=== PATIENT | male | born 1985 | race Caucasian/White ===

== ENCOUNTER 2018-04-17 09:50 | Inpatient (IN) | payer SELFPAY ==
[2018-04-17 11:02] VITALS: BMI 27.4
--- NOTE | 2018-04-17 12:35 | HP ---
COWS - Scale Resting Pulse: 0= DC 80 or Below Sweatin= Chills/Flushing Restless Observation: 3= Extraneous Movement Pupil Size: 1= Pupils >than Normal Bone or Joint Aches: 2= Severe Diffuse Aches Runny Nose/ Eye Tearin= Runny Nose/Eyes GI Upset > 30mins: 2= Nausea/Diarrhea Tremor Observation: 2= Slight Tremor Visible Yawning Observation: 1= 1-2x During Session Anxiety or Irritability: 2=Irritable/Anxious Goose Flesh Skin: 0=Smooth Skin COWS Score: 16 CIWA Score - Admission Criteria OASAS Guidelines: Admission for Medically Managed Detox: Requires at least one of the followin. CIWA greater than 12 2. Seizures within the past 24 hours 3. Delirium tremens within the past 24 hours 4. Hallucinations within the past 24 hours 5. Acute intervention needed for co occurring medical disorder 6. Acute intervention needed for co occurring psychiatric disorder 7. Severe withdrawal that cannot be handled at a lower level of care (continued vomiting, continued diarrhea, abnormal vital signs) requiring intravenous medication and/or fluids 8. Admission ROS S - HPI Chief Complaint: i need help to stop using heroin and marijuana Allergies/Adverse Reactions: Allergies Allergy/AdvReac Type Severity Reaction Status Date / Time aspirin Allergy Verified 04/17/18 12:10 Penicillins Allergy Verified 04/17/18 12:11 History of Present Illness: this 33 years old male with heroin and marijuana dependence,seeking detox, withdrawal symptom,seen in [place] last night, hypertension on med nicotine dependence need help to come in for detox schizophrenia,bipolar disorder,anxiety and depression non compliance Exam Limitations: No Limitations - Ebola screening Have you traveled outside of the country in the last 21 days: No Have you had contact with anyone from an Ebola affected area: No Have you been sick,other than usual withdrawal symptoms: No Do you have a fever: No - Review of Systems Constitutional: Chills, Loss of Appetite, Malaise, Night Sweats, Changes in sleep, Weakness EENT: reports: Tearing, Nose Congestion Respiratory: reports: No Symptoms reported Cardiac: reports: No Symptoms Reported GI: reports: Nausea, Poor Appetite, Abdominal cramping : reports: No Symptoms Reported Musculoskeletal: reports: Back Pain, Joint Pain, Muscle Pain Integumentary: reports: Dryness Neuro: reports: Headache, Tremors Endocrine: reports: No Symptoms Reported Hematology: reports: No Symptoms Reported Psychiatric: reports: No Sypmtoms Reported, Judgement Intact, Mood/Affect Appropiate, Orientated x3, other Other Systems: Reviewed and Negative (schizophrenia,bipolar disorder,depression) Patient History - Patient Medical History Hx Anemia: No Hx Asthma: No Hx Chronic Obstructive Pulmonary Disease (COPD): No Hx Cancer: No Hx Cardiac Disorders: No Hx Congestive Heart Failure: No Hx Hypertension: Yes (on med) Hx Hypercholesterolemia: Yes (no med) Hx Pacemaker: No HX Cerebrovascular Accident: No Hx Seizures: No Hx Dementia: No Hx Diabetes: No Hx Gastrointestinal Disorders: No Hx Liver Disease: No Hx Genitourinary Disorders: No Hx Sexually Transmitted Disorders: No Hx Renal Disease (ESRD): No Hx Thyroid Disease: No Hx Human Immunodeficiency Virus (HIV): No (last 09/27 negative) Hx Hepatitis C: No Hx Depression: Yes Hx Suicide Attempt: Yes (ABDOPMINAL CUT 03/2017) Hx Bipolar Disorder: Yes Hx Schizophrenia: Yes Other Medical History: no suicidal,no homicidal - Patient Surgical History Past Surgical History: No - PPD History Previous Implant?: Yes Documented Results: Negative w/o proof Implanted On Prior [facility] Admission?: No PPD to be Administered?: Yes - Smoking Cessation Smoking history: Current every day smoker Have you smoked in the past 12 months: Yes Aproximately how many cigarettes per day: 20 Hx Chewing Tobacco Use: Yes Initiated information on smoking cessation: Yes 'Breaking Loose' booklet given: 04/17/18 - Substance & Tx. History Hx Alcohol Use: No Hx Substance Use: Yes Substance Use Type: Heroin, Marijuana Hx Substance Use Treatment: No - Substances Abused Heroin Route: SNIFF Frequency: Daily Amount used: 2 BUNDLES Age of first use: 30 Date of Last Use: 04/16/18 Marijuana/Hashish Route: Smoking Frequency: Daily Amount used: 2 BAGS Age of first use: 17 Date of Last Use: 04/16/18 Family Disease History - Family Disease History Family History: Denies Admission Physical Exam BHS - Vital Signs Vital Signs: Vital Signs - 24 hr 04/17/18 11:00 Temperature 98.3 F Pulse Rate 80 Respiratory 18 Rate Blood Pressure 125/78 - Physical General Appearance: Yes: Moderate Distress, Tremorous, Irritable, Sweating, Anxious HEENTM: Yes: Within Normal Limits, Normal ENT Inspection, ALPHONSO Respiratory: Yes: Within Normal Limits, Lungs Clear, Normal Breath Sounds Neck: Yes: Within Normal Limits, Supple, Trachea in good position Breast: Yes: Within Normal Limits Cardiology: Yes: Within Normal Limits, Regular Rhythm, Regular Rate, S1, S2 Abdominal: Yes: Within Normal Limits, Normal Bowel Sounds, Non Tender, Flat, Soft Genitourinary: Yes: Within Normal Limits Back: Yes: Within Normal Limits, Normal Inspection, Muscle Spasm Musculoskeletal: Yes: full range of Motion, Back pain, Muscle Pain Extremities: Yes: Within Normal Limits, Tremors Neurological: Yes: surveillance systems analyst II-XII NML intact, Fully Oriented, Alert, Motor Strength 5/5 Integumentary: Yes: Dry Lymphatic: Yes: Within Normal Limits - Diagnostic (1) Opioid dependence with withdrawal Current Visit: Yes Status: Acute (2) Cannabis dependence Current Visit: Yes Status: Acute (3) Nicotine dependence Current Visit: Yes Status: Acute (4) Essential hypertension Current Visit: Yes Status: Acute (5) Schizophrenia Current Visit: Yes Status: Acute Cleared for Admission [facility] - Detox or Rehab [facility] Level of Care: Medically Managed Detox Regimen/Protocol: Methadone [facility] Breath Alcohol Content Breath Alcohol Content: 0 Urine Drug Screen - Results Drug Screen Negative: No Urine Drug Screen Results: THC-Marijuana, OPI-Opiates
[2018-04-17] MEDS ORDERED: P-EPHED 60MG/TRIPROLIDI 2.5MG TABLET PO PRN (12:48)
[2018-04-17] MEDS ORDERED: LOPERAMIDE HCL 2 MG CAPSULE PO PRN (12:48)
[2018-04-17] MEDS ORDERED: ACETAMINOPHEN 325 MG TABLET (FP) PO PRN (12:48)
[2018-04-17] MEDS ORDERED: MAG HYDROX/AL HYDROX/SIMETH 30 ML UNIT-DOSE CUP PO PRN (12:48)
[2018-04-17] MEDS ORDERED: MENTHOL/PHENOL 1 EACH UD MM PRN (12:48)
[2018-04-17] MEDS ORDERED: METHADONE HCL 10 MG TABLET (FOR DETOX USE ONLY) PO ONE ×2 (12:48→23:00)
[2018-04-17] MEDS ORDERED: IBUPROFEN 400 MG TABLET (FP) PO PRN (12:48)
[2018-04-17] MEDS ORDERED: guaiFENesin/D-METHORPHAN HB 10 ML UNIT-DOSE CUPS PO PRN (12:48)
[2018-04-17] MEDS ORDERED: MAGNESIUM HYDROX 2400MG/30ML ORAL SUSPENSION 30 ML CUP PO PRN (12:48)
[2018-04-17] MEDS ORDERED: MAGNESIUM CITRATE 300 ML BOTTLE PO PRN (12:48)
[2018-04-17] MEDS: CYCLOBENZAPRINE HCL 10 MG TABLET (FP) PO PRN ×2 (13:55→22:37)
[2018-04-17] MEDS: diazePAM 5 MG TABLET PO PRN ×2 (13:55→22:37)
[2018-04-17] MEDS: NICOTINE 21 MG/24 HOURS TOPICAL PATCH TD SCH (13:55)
[2018-04-17] MEDS ORDERED: MELATONIN 5 MG TABLETS PO PRN (22:00)
[2018-04-17] MEDS: cloNIDine HCL 0.1 MG TABLET PO SCH (22:37)
[2018-04-17] MEDS: THIAMINE HCL 100 MG TABLET (FP) PO SCH (22:38)
[2018-04-18] MEDS: diazePAM 5 MG TABLET PO PRN ×3 (05:25→14:54)
[2018-04-18] MEDS: CYCLOBENZAPRINE HCL 10 MG TABLET (FP) PO PRN ×2 (07:55→22:46)
[2018-04-18] MEDS: hydrOXYzine PAMOATE 50 MG CAPSULE (FP) PO PRN ×2 (07:55→18:36)
[2018-04-18] MEDS ORDERED: METHADONE HCL 10 MG TABLET (FOR DETOX USE ONLY) PO ONE (10:00)
[2018-04-18] MEDS: PRENATAL VITAMINS W/ FOLIC ACID TABLET (FP) PO SCH (10:13)
[2018-04-18] MEDS: cloNIDine HCL 0.1 MG TABLET PO SCH ×2 (10:13→22:46)
[2018-04-18] MEDS: NICOTINE 21 MG/24 HOURS TOPICAL PATCH TD SCH (10:13)
[2018-04-18 10:19] LABS: HEMATOCRIT 44.1 % (35.4-49); HEMOGLOBIN 15.4 GM/dL (11.7-16.9); MCH 30.9 pg (25.7-33.7); MCHC 34.9 g/dl (32.0-35.9); MEAN CELL VOLUME 88.6 fl (80-96); MEAN PLT VOLUME 9.7 fl (7.5-11.1); PLATELET COUNT 199 K/MM3 (134-434); RBC 4.98 M/mm3 (4.00-5.60); RDW 13.4 % (11.9-15.9); WHITE BLOOD COUNT 5.6 K/mm3 (4.0-10.0)
[2018-04-18 10:23] LABS: ALBUMIN 4.1 g/dl (3.4-5.0); ALK PHOS 95 U/L (45-117); ANION GAP 5 MMOL/L (8-16); BILIRUBIN,TOTAL 0.3 mg/dL (0.2-1); BLOOD UREA NITROGEN 7 mg/dL (7-18); CALCIUM 9.3 mg/dL (8.5-10.1); CHLORIDE 104 mmol/L (98-107); CO2 29 mmol/L (21-32); CREATININE 0.8 mg/dL (0.55-1.3); GLUCOSE,RANDOM 97 mg/dL (74-106); POTASSIUM 4.7 mmol/L (3.5-5.1); SGOT/AST 24 U/L (15-37); SGPT/ALT 41 U/L (13-61); SODIUM 139 mmol/L (136-145); TOT PROT 7.8 g/dl (6.4-8.2)
[2018-04-18] MEDS ORDERED: FLU VACCINE QUAD 60 MCG/0.5 ML (MDV 18-19) IM ONE (12:07)
[2018-04-18] MEDS ORDERED: PNEUMOC 13-VAL CONJ-DIP CRM/PF 0.5 ML DISP.SYRIN IM ONE (12:07)
[2018-04-18] MEDS ORDERED: PNEUMOCOCCAL 23 VACCINE 0.5 ML VIAL IM ONE (12:07)
--- NOTE | 2018-04-18 15:28 | PN ---
BHS COWS - Scale Resting Pulse: 0= [place] 80 or Below Sweatin= Chills/Flushing Restless Observation: 1= Difficult to Sit Still Pupil Size: 0= Normal to Room Light Bone or Joint Aches: 1= Mild Discomfort Runny Nose/ Eye Tearin= None GI Upset > 30mins: 0= None Tremor Observation of Outstretched Hands: 2= Slight Tremor Visible Yawning Observation: 1= 1-2x During Session Anxiety or Irritability: 2=Irritable/Anxious Goose Flesh Skin: 3=Piloerection COWS Score: 11 BHS Progress Note (SOAP) Subjective: Tremors, Anxious, Sweating. Objective: PATIENT A & O X 2 (UNCERTAIN ABOUT CURRENT DAY / DATE). PATIENT OBSERVED AMBULATING ON UNIT. IN NO ACUTE DISTRESS. 04/18/18 15:27 Vital Signs Temperature 97.5 F L 04/18/18 14:43 Pulse Rate 80 04/18/18 14:43 Respiratory Rate 18 04/18/18 14:43 Blood Pressure 119/70 04/18/18 14:43 O2 Sat by Pulse Oximetry (%) Laboratory Tests 04/18/18 04/18/18 04/18/18 07:00 07:00 07:00 WBC 5.6 RBC 4.98 Hgb 15.4 Hct 44.1 MCV 88.6 MCH 30.9 MCHC 34.9 RDW 13.4 Plt Count 199 MPV 9.7 Sodium 139 Potassium 4.7 Chloride 104 Carbon Dioxide 29 Anion Gap 5 L BUN 7 Creatinine 0.8 Creat Clearance w eGFR > 60 Random Glucose 97 Calcium 9.3 Total Bilirubin 0.3 AST 24 ALT 41 Alkaline Phosphatase 95 Total Protein 7.8 Albumin 4.1 RPR Titer HIV 1&2 Antibody Screen Negative HIV P24 Antigen Negative 04/18/18 07:00 WBC RBC Hgb Hct MCV MCH MCHC RDW Plt Count MPV Sodium Potassium Chloride Carbon Dioxide Anion Gap BUN Creatinine Creat Clearance w eGFR Random Glucose Calcium Total Bilirubin AST ALT Alkaline Phosphatase Total Protein Albumin RPR Titer Nonreactive HIV 1&2 Antibody Screen HIV P24 Antigen LABS NOTED. Assessment: 04/18/18 15:27 WITHDRAWAL SYMPTOMS. Plan: CONTINUE DETOX. INCREASE DAILY PO FLUID INTAKE.
[2018-04-18] MEDS: THIAMINE HCL 100 MG TABLET (FP) PO SCH (23:30)
[2018-04-19] MEDS: diazePAM 5 MG TABLET PO PRN ×5 (01:11→18:04)
[2018-04-19] MEDS: hydrOXYzine PAMOATE 50 MG CAPSULE (FP) PO PRN ×2 (06:45→17:10)
[2018-04-19] MEDS: CYCLOBENZAPRINE HCL 10 MG TABLET (FP) PO PRN ×2 (06:45→17:09)
[2018-04-19] MEDS ORDERED: METHADONE HCL 5 MG TABLET (FOR DETOX USE ONLY) PO ONE (10:00)
[2018-04-19] MEDS: PRENATAL VITAMINS W/ FOLIC ACID TABLET (FP) PO SCH (10:02)
[2018-04-19] MEDS: cloNIDine HCL 0.1 MG TABLET PO SCH (10:02)
[2018-04-19] MEDS: NICOTINE 21 MG/24 HOURS TOPICAL PATCH TD SCH (10:03)
[2018-04-19 17:26] VITALS: BP 128/68; PULSE 66; TEMP 98.2
--- NOTE | 2018-04-19 17:33 | PN ---
BHS COWS - Scale Resting Pulse: 1= [place] 81-100 Sweatin= Chills/Flushing Restless Observation: 1= Difficult to Sit Still Pupil Size: 0= Normal to Room Light Bone or Joint Aches: 0= None Runny Nose/ Eye Tearin= Nasal Congestion GI Upset > 30mins: 1= Stomach Cramp Tremor Observation of Outstretched Hands: 0= None Yawning Observation: 1= 1-2x During Session Anxiety or Irritability: 4=Extreme Anxiety Goose Flesh Skin: 0=Smooth Skin COWS Score: 10 BHS Progress Note (SOAP) Subjective: Interrupted Sleep, Sweating, Stomach Cramping. Objective: PATIENT A & O X 3, OBSERVED AMBULATING ON UNIT. IN NO ACUTE DISTRESS. 04/19/18 17:32 Vital Signs Temperature 98.2 F 04/19/18 17:25 Pulse Rate 66 04/19/18 17:25 Respiratory Rate 18 04/19/18 17:25 Blood Pressure 128/68 04/19/18 17:25 O2 Sat by Pulse Oximetry (%) Laboratory Tests 04/18/18 04/18/18 04/18/18 07:00 07:00 07:00 WBC 5.6 RBC 4.98 Hgb 15.4 Hct 44.1 MCV 88.6 MCH 30.9 MCHC 34.9 RDW 13.4 Plt Count 199 MPV 9.7 Sodium 139 Potassium 4.7 Chloride 104 Carbon Dioxide 29 Anion Gap 5 L BUN 7 Creatinine 0.8 Creat Clearance w eGFR > 60 Random Glucose 97 Calcium 9.3 Total Bilirubin 0.3 AST 24 ALT 41 Alkaline Phosphatase 95 Total Protein 7.8 Albumin 4.1 RPR Titer HIV 1&2 Antibody Screen Negative HIV P24 Antigen Negative 04/18/18 07:00 WBC RBC Hgb Hct MCV MCH MCHC RDW Plt Count MPV Sodium Potassium Chloride Carbon Dioxide Anion Gap BUN Creatinine Creat Clearance w eGFR Random Glucose Calcium Total Bilirubin AST ALT Alkaline Phosphatase Total Protein Albumin RPR Titer Nonreactive HIV 1&2 Antibody Screen HIV P24 Antigen LABS NOTED. Assessment: 04/19/18 17:32 WITHDRAWAL SYMPTOMS. Plan: CONTINUE DETOX. INCREASE DAILY PO FLUID INTAKE.
--- NOTE | 2018-04-19 19:42 | DS ---
[facility] Detox Discharge Summary Admission Date: 04/17/18 Discharge Date: 04/19/18 - History Present History: Cannabis Dependence, Opioid Dependence Pertinent Past History: 33 years old male admitted with heroin and marijuana dependence- leaving AMA today. Says methadone dose is not high enough- offered pt clonidine and vistaril /valium- pt refused stating that he wants to leave now. - Physical Exam Results Vital Signs: Vital Signs Temperature 98.2 F 04/19/18 17:25 Pulse Rate 66 04/19/18 17:25 Respiratory Rate 18 04/19/18 17:25 Blood Pressure 128/68 04/19/18 17:25 O2 Sat by Pulse Oximetry (%) - Treatment Hospital Course: Detox Protocol Followed - Medication Discharge Medications: Ambulatory Orders Clonazepam 1 mg PO DAILY 04/17/18 Divalproex Sodium [Depakote] 500 mg PO DAILY 04/17/18 Quetiapine Fumarate [Seroquel] 100 mg PO HS 04/17/18 - Diagnosis (1) Cannabis dependence Current Visit: Yes Status: Acute (2) Nicotine dependence Current Visit: Yes Status: Acute Qualifiers: Nicotine product type: cigarettes Substance use status: uncomplicated Qualified Code(s): F17.210 - Nicotine dependence, cigarettes, uncomplicated (3) Opioid dependence with withdrawal Current Visit: Yes Status: Acute (4) Bipolar disorder Current Visit: Yes Status: Chronic Qualifiers: Active/Remission status: remission status unspecified Qualified Code(s): F31.9 - Bipolar disorder, unspecified (5) Essential hypertension Current Visit: Yes Status: Chronic (6) Schizophrenia Current Visit: Yes Status: Chronic Qualifiers: Schizophrenia type: unspecified Qualified Code(s): F20.9 - Schizophrenia, unspecified - AMA Did Patient Leave Against Medical Advice: Yes
[2018-04-20] MEDS ORDERED: METHADONE HCL 5 MG TABLET (FOR DETOX USE ONLY) PO ONE (10:00)
[2018-04-21] MEDS ORDERED: METHADONE HCL 10 MG TABLET (FOR DETOX USE ONLY) PO ONE (10:00)
[2018-04-22] MEDS ORDERED: METHADONE HCL 5 MG TABLET (FOR DETOX USE ONLY) PO ONE (06:00)
== END 2018-04-19 20:17 | disposition left against medical advice (07) | DRG 770 ==
LOC: YASAS 09:50 → Y6N 12:16
PROC: HZ2ZZZZ Detoxification Services for Substance Abuse Treatment (ICD-10-PCS; principal; 2018-04-17)
DX: F11.23 Opioid dependence with withdrawal (principal); F12.20 Cannabis dependence, uncomplicated; F17.210 Nicotine dependence, cigarettes, uncomplicated; F31.9 Bipolar disorder, unspecified; F20.9 Schizophrenia, unspecified; I10 Essential (primary) hypertension; Z91.5 Personal history of self-harm; Z59.0 Homelessness
CPT/HCPCS: 36415; 80053; 85027; 86593; 87389; 90688; 90732; G0009; J0735

== ENCOUNTER 2019-10-31 09:23 | Inpatient (IN) | payer OTHER ==
--- NOTE | 2019-10-31 09:36 | BHS.RME ---
Substance Use & Tx History - Substance Use History Alcohol Substance amount: 1/gallon vodka Frequency of use: Daily Substance route: Oral Date of Last Use: 10/30/19 Benzodiazepines Substance amount: klonopin 1 mg - 4-5 tabs Frequency of use: Daily Substance route: Oral Date of Last Use: 10/29/19 Nicotine Substance amount: 1/2 pack Frequency of use: Daily Substance route: Smoking Date of Last Use: 10/30/19 Physical/Psych/Mental Status - Behavior General Behavior: Increased activity (restlessness, agitation) Eye Contact: Normal - Cooperativeness Cooperativeness: Cooperative - Thinking Thought Processes: Tight, Logical, Goal Directed - Physical Health Problems Is patient presently having any pain?: No Does patient presently have any injuries (include location): No Does patient currently have a fever: No Is patient : No CIWA Nausea/Vomitin Muscle Tremors: 7-Severe,w/o Arm Extended Anxiety: 3 Agitation: 3 Paroxysmal Sweats: 4-Forehead w/Sweat Beads Orientation: 1-Uncertain about Date Tacttile Disturbances: 0-None Auditory Disturbances: 0-None Visual Disturbances: 0-None Headache: 0-None Present CIWA-Ar Total Score: 20
[2019-10-31 10:35] VITALS: BMI 28.4
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
[2019-10-31] MEDS ORDERED: IBUPROFEN 400 MG TABLET (FP) PO PRN (11:10)
[2019-10-31] MEDS ORDERED: MAGNESIUM HYDROX 2400MG/30ML ORAL SUSPENSION 30 ML CUP PO PRN (11:10)
[2019-10-31] MEDS ORDERED: MENTHOL/PHENOL 1 EACH UD MM PRN (11:10)
[2019-10-31] MEDS ORDERED: BISMUTH SUBSALICYLATE 524 MG/30 ML UD PO PRN (11:10)
[2019-10-31] MEDS ORDERED: ONDANSETRON *ODT* 4 MG TABLET SL PRN (11:10)
[2019-10-31] MEDS ORDERED: NICOTINE POLACRILEX 2 MG GUM BUC PRN (11:10)
[2019-10-31] MEDS ORDERED: ACETAMINOPHEN 325 MG TABLET (FP) PO PRN ×2 (11:10)
[2019-10-31] MEDS ORDERED: METHADONE HCL 10 MG TABLET (FOR DETOX USE ONLY) PO ONE (11:10)
[2019-10-31] MEDS ORDERED: MAG HYDROX/AL HYDROX/SIMETH 30 ML UNIT-DOSE CUP PO PRN (11:10)
[2019-10-31] MEDS ORDERED: MAGNESIUM CITRATE 300 ML BOTTLE PO PRN (11:10)
[2019-10-31] MEDS: NICOTINE 14 MG/24 HOURS TOPICAL PATCH TD SCH (13:12)
[2019-10-31] MEDS: hydrOXYzine PAMOATE 25 MG CAPSULE (FP) PO SCH ×3 (13:12→22:09)
--- NOTE | 2019-10-31 13:14 | EKG ---
Test Reason : Blood Pressure : / mmHG Vent. Rate : 064 BPM Atrial Rate : 064 BPM P-R Int : 122 ms QRS Dur : 086 ms QT Int : 410 ms P-R-T Axes : 047 040 054 degrees QTc Int : 422 ms NORMAL SINUS RHYTHM NORMAL ECG WHEN COMPARED WITH ECG OF 17-APR-2018 13:27, NO SIGNIFICANT CHANGE WAS FOUND Confirmed by Guanako Castaneda ([id number]) on 10/31/2019 1:14:39 PM Referred By: Confirmed By:Guanako Castaneda
[2019-10-31 15:06] LABS: HEMATOCRIT 38.4 % (35.4-49); HEMOGLOBIN 12.9 GM/dL (11.7-16.9); MCH 29.9 pg (25.7-33.7); MCHC 33.6 g/dl (32.0-35.9); MEAN PLT VOLUME 9.7 fl (7.5-11.1); PLATELET COUNT 143 K/MM3 (134-434); RBC 4.32 M/mm3 (4.00-5.60); WHITE BLOOD COUNT 3.9 K/mm3 (4.0-10.0)
[2019-10-31 15:21] LABS: POTASSIUM 4.3 mmol/L (3.5-5.1)
[2019-10-31 15:32] LABS: ALBUMIN 3.8 g/dl (3.4-5.0); BILIRUBIN,TOTAL 0.2 mg/dL (0.2-1); BLOOD UREA NITROGEN 13.8 mg/dL (7-18); CALCIUM 9.3 mg/dL (8.5-10.1); CREATININE 0.8 mg/dL (0.55-1.3); TOT PROT 7.4 g/dl (6.4-8.2)
[2019-10-31] MEDS: chlordiazePOXIDE HCL 25 MG CAPSULE PO SCH ×2 (17:24→22:09)
[2019-10-31] MEDS: MELATONIN 5 MG TABLETS PO SCH (22:09)
[2019-10-31] MEDS: THIAMINE HCL 100 MG TABLET (FP) PO SCH (22:09)
[2019-11-01] MEDS: chlordiazePOXIDE HCL 25 MG CAPSULE PO PRN ×2 (01:08→12:12)
[2019-11-01] MEDS: hydrOXYzine PAMOATE 25 MG CAPSULE (FP) PO SCH ×5 (05:20→22:03)
[2019-11-01] MEDS: chlordiazePOXIDE HCL 25 MG CAPSULE PO SCH ×4 (05:20→22:03)
[2019-11-01] MEDS ORDERED: METHADONE HCL 10 MG TABLET (FOR DETOX USE ONLY) ONE (08:20)
[2019-11-01] MEDS ORDERED: METHADONE HCL 5 MG TABLET (FOR DETOX USE ONLY) ONE (08:21)
[2019-11-01] MEDS ORDERED: METHADONE (DETOX) 20 MG, METHADONE (DETOX) 5 MG PO ONE (10:00)
[2019-11-01] MEDS: NICOTINE 14 MG/24 HOURS TOPICAL PATCH TD SCH (10:04)
[2019-11-01] MEDS: PRENATAL VITAMINS W/ FOLIC ACID TABLET (FP) PO SCH (10:04)
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
[2019-11-01] MEDS: cloNIDine HCL 0.1 MG TABLET PO PRN (12:12)
--- NOTE | 2019-11-01 13:08 | PN ---
S CIWA - CIWA Score Nausea/Vomitin Muscle Tremors: 2 Anxiety: 2 Agitation: 2 Paroxysmal Sweats: No Perspiration Orientation: 0-Oriented Tacttile Disturbances: 1-Very Mild Itch/Numbness Auditory Disturbances: 0-None Visual Disturbances: 0-None Headache: 2-Mild CIWA-Ar Total Score: 11 BHS COWS - Scale Resting Pulse: 0= [place] 80 or Below Sweatin= No chills or Flushing Restless Observation: 1= Difficult to Sit Still Pupil Size: 0= Normal to Room Light Bone or Joint Aches: 1= Mild Discomfort Runny Nose/ Eye Tearin= Runny Nose/Eyes GI Upset > 30mins: 2= Nausea/Diarrhea Tremor Observation of Outstretched Hands: 2= Slight Tremor Visible Yawning Observation: 1= 1-2x During Session Anxiety or Irritability: 2=Irritable/Anxious Goose Flesh Skin: 0=Smooth Skin COWS Score: 11 [facility] Progress Note (SOAP) Subjective: alert,irritable,anxious,pain in the body and back,tremor, Objective: 11/01/19 13:06 Vital Signs Temperature 97.5 F L 11/01/19 12:18 Pulse Rate 70 11/01/19 12:18 Respiratory Rate 18 11/01/19 12:18 Blood Pressure 110/67 11/01/19 12:18 O2 Sat by Pulse Oximetry (%) 98 11/01/19 12:18 Laboratory Last Values WBC 3.9 K/mm3 (4.0-10.0) L 10/31/19 10:25 RBC 4.32 M/mm3 (4.00-5.60) 10/31/19 10:25 Hgb 12.9 GM/dL (11.7-16.9) 10/31/19 10:25 Hct 38.4 % (35.4-49) 10/31/19 10:25 MCV 89.0 fl (80-96) 10/31/19 10:25 MCH 29.9 pg (25.7-33.7) 10/31/19 10:25 MCHC 33.6 g/dl (32.0-35.9) 10/31/19 10:25 RDW 14.0 % (11.9-15.9) 10/31/19 10:25 Plt Count 143 K/MM3 (134-434) D 10/31/19 10:25 MPV 9.7 fl (7.5-11.1) 10/31/19 10:25 Sodium 137 mmol/L (136-145) 10/31/19 10:25 Potassium 4.3 mmol/L (3.5-5.1) 10/31/19 10:25 Chloride 100 mmol/L (98-107) 10/31/19 10:25 Carbon Dioxide 33 mmol/L (21-32) H 10/31/19 10:25 Anion Gap 4 MMOL/L (8-16) L 10/31/19 10:25 BUN 13.8 mg/dL (7-18) 10/31/19 10:25 Creatinine 0.8 mg/dL (0.55-1.3) 10/31/19 10:25 Est GFR (CKD-EPI)AfAm 134.14 10/31/19 10:25 Est GFR (CKD-EPI)NonAf 115.74 10/31/19 10:25 Random Glucose 94 mg/dL (74-106) 10/31/19 10:25 Calcium 9.3 mg/dL (8.5-10.1) 10/31/19 10:25 Total Bilirubin 0.2 mg/dL (0.2-1) 10/31/19 10:25 AST 24 U/L (15-37) 10/31/19 10:25 ALT 32 U/L (13-61) 10/31/19 10:25 Alkaline Phosphatase 101 U/L (45-117) 10/31/19 10:25 Total Protein 7.4 g/dl (6.4-8.2) 10/31/19 10:25 Albumin 3.8 g/dl (3.4-5.0) 10/31/19 10:25 Syphilis Serology Non-reactive (NONREACTIVE) 10/31/19 10:25 HIV Ag/Ab Combo Qual Negative (NEGATIVE) 10/31/19 10:25 Assessment: 11/01/19 13:08 withdrawal symptom Plan: continue detox methadone and librium regimen,ensure plus 120 mls po bid
[2019-11-01] MEDS: METHOCARBAMOL 500 MG TABLET PO PRN (15:27)
[2019-11-01] MEDS: DIVALPROEX SODIUM 500 MG TABLET E.C. PO SCH (22:03)
[2019-11-01] MEDS: QUEtiapine FUMARATE 100 MG TABLET (FP) PO SCH (22:03)
[2019-11-01] MEDS: MELATONIN 5 MG TABLETS PO SCH (22:03)
[2019-11-01] MEDS: THIAMINE HCL 100 MG TABLET (FP) PO SCH (22:03)
[2019-11-02] MEDS: METHOCARBAMOL 500 MG TABLET PO PRN ×2 (00:34→09:22)
[2019-11-02] MEDS: chlordiazePOXIDE HCL 25 MG CAPSULE PO PRN (00:34)
[2019-11-02] MEDS ORDERED: chlordiazePOXIDE HCL 25 MG CAPSULE PO SCH (05:00)
[2019-11-02] MEDS: hydrOXYzine PAMOATE 25 MG CAPSULE (FP) PO SCH ×2 (05:26→09:22)
[2019-11-02] MEDS: cloNIDine HCL 0.1 MG TABLET PO PRN ×3 (09:22→22:12)
[2019-11-02] MEDS ORDERED: METHADONE HCL 10 MG TABLET (FOR DETOX USE ONLY) PO ONE (10:00)
[2019-11-02] MEDS: diazePAM 5 MG TABLET PO SCH ×3 (10:09→22:10)
[2019-11-02] MEDS: PRENATAL VITAMINS W/ FOLIC ACID TABLET (FP) PO SCH (10:09)
[2019-11-02] MEDS: NICOTINE 14 MG/24 HOURS TOPICAL PATCH TD SCH (10:11)
[2019-11-02] MEDS: hydrOXYzine PAMOATE 50 MG CAPSULE (FP) PO SCH ×3 (10:14→22:10)
--- NOTE | 2019-11-02 10:40 | PN ---
[facility] CIWA - CIWA Score Nausea/Vomitin-Mild Nausea/No Vomiting Muscle Tremors: 2 Anxiety: 4-Mod. Anxious/Guarded Agitation: 1-Slight > Activity Paroxysmal Sweats: 1-Minimal Palms Moist Orientation: 0-Oriented Tacttile Disturbances: 0-None Auditory Disturbances: 0-None Visual Disturbances: 0-None Headache: 0-None Present CIWA-Ar Total Score: 9 BHS COWS - Scale Resting Pulse: 1= [place] 81-100 Sweatin= Chills/Flushing Restless Observation: 0= Sits Still Pupil Size: 1= Pupils >than Normal Bone or Joint Aches: 0= None Runny Nose/ Eye Tearin= None GI Upset > 30mins: 2= Nausea/Diarrhea Tremor Observation of Outstretched Hands: 2= Slight Tremor Visible Yawning Observation: 0= None Anxiety or Irritability: 2=Irritable/Anxious Goose Flesh Skin: 0=Smooth Skin COWS Score: 9 S Progress Note (SOAP) Subjective: 34 years old male admitted on 10/31/19 for alcohol benzo opiate withdrawal sx management treating with librium and methadone detox regiment report librium does not work for him requests valium for alcohol and benzo detox discontinue librium begin valium regiment mr sandoval states that he was in suboxone program 3 years ago and is considering return to suboxone program currently prefers methadone maintenance program seen by psychiatrist matthias johnson mr sandoval requests to be seen by a psychiatrist that seroquel dosage need adjusted increase vistari dosage for anxiety one dos eof belsoa for insomnia Objective: 11/02/19 10:40 Vital Signs - 24 hr 11/01/19 11/01/19 11/01/19 12:18 16:34 20:39 Temperature 97.5 F L 97.5 F L 97.8 F Pulse Rate 70 77 80 Respiratory 18 18 18 Rate Blood Pressure 110/67 110/75 119/74 O2 Sat by Pulse 98 97 Oximetry (%) 11/02/19 11/02/19 06:11 08:43 Temperature 97.3 F L 97.2 F L Pulse Rate 89 87 Respiratory 16 18 Rate Blood Pressure 128/78 128/78 O2 Sat by Pulse 97 Oximetry (%) Laboratory Tests 10/31/19 10/31/1920 10:25 10:25 10:25 WBC 3.9 L RBC 4.32 Hgb 12.9 Hct 38.4 MCV 89.0 MCH 29.9 MCHC 33.6 RDW 14.0 Plt Count 143 D MPV 9.7 Sodium 137 Potassium 4.3 Chloride 100 Carbon Dioxide 33 H Anion Gap 4 L BUN 13.8 Creatinine 0.8 Est GFR (CKD-EPI)AfAm 134.14 Est GFR (CKD-EPI)NonAf 115.74 Random Glucose 94 Calcium 9.3 Total Bilirubin 0.2 AST 24 ALT 32 Alkaline Phosphatase 101 Total Protein 7.4 Albumin 3.8 Syphilis Serology COVID-19 (CHEKO) HIV Ag/Ab Combo Qual Negative 10/31/19 10/31/19 10:25 11:40 WBC RBC Hgb Hct MCV MCH MCHC RDW Plt Count MPV Sodium Potassium Chloride Carbon Dioxide Anion Gap BUN Creatinine Est GFR (CKD-EPI)AfAm Est GFR (CKD-EPI)NonAf Random Glucose Calcium Total Bilirubin AST ALT Alkaline Phosphatase Total Protein Albumin Syphilis Serology Non-reactive COVID-19 (CHEKO) Not detected HIV Ag/Ab Combo Qual lab noted Assessment: 11/02/19 10:40 alcohol benzo opiate withdrawal Plan: valium and methadone regiments
[2019-11-02] MEDS: diazePAM 5 MG TABLET PO PRN ×2 (14:16→19:20)
[2019-11-02] MEDS ORDERED: SUVOREXANT 5 MG TABLET PO SCH (22:00)
[2019-11-02] MEDS: MELATONIN 5 MG TABLETS PO SCH (22:10)
[2019-11-02] MEDS: DIVALPROEX SODIUM 500 MG TABLET E.C. PO SCH (22:10)
[2019-11-02] MEDS: THIAMINE HCL 100 MG TABLET (FP) PO SCH (23:14)
[2019-11-02] MEDS: QUEtiapine FUMARATE 100 MG TABLET (FP) PO SCH (23:14)
[2019-11-03] MEDS ORDERED: chlordiazePOXIDE HCL 10 MG CAPSULE PO PRN
[2019-11-03] MEDS: diazePAM 5 MG TABLET PO PRN ×3 (01:04→17:02)
[2019-11-03] MEDS ORDERED: chlordiazePOXIDE HCL 10 MG CAPSULE PO SCH (05:00)
[2019-11-03] MEDS: hydrOXYzine PAMOATE 50 MG CAPSULE (FP) PO SCH ×3 (05:26→17:02)
[2019-11-03] MEDS: diazePAM 5 MG TABLET PO SCH ×2 (05:26→12:17)
[2019-11-03] MEDS: METHOCARBAMOL 500 MG TABLET PO PRN ×2 (05:40→17:02)
[2019-11-03] MEDS ORDERED: METHADONE HCL 5 MG TABLET (FOR DETOX USE ONLY) ONE (09:58)
[2019-11-03] MEDS ORDERED: METHADONE HCL 10 MG TABLET (FOR DETOX USE ONLY) ONE (09:58)
[2019-11-03] MEDS ORDERED: METHADONE (DETOX) 10 MG, METHADONE (DETOX) 5 MG PO ONE (10:00)
[2019-11-03] MEDS: PRENATAL VITAMINS W/ FOLIC ACID TABLET (FP) PO SCH (10:07)
[2019-11-03] MEDS: NICOTINE 14 MG/24 HOURS TOPICAL PATCH TD SCH (10:08)
--- NOTE | 2019-11-03 11:12 | PN ---
S CIWA - CIWA Score Nausea/Vomitin-Mild Nausea/No Vomiting Muscle Tremors: 2 Agitation: 1-Slight > Activity Paroxysmal Sweats: 1-Minimal Palms Moist Orientation: 1-Uncertain about Date Tacttile Disturbances: 1-Very Mild Itch/Numbness Auditory Disturbances: 0-None Visual Disturbances: 0-None Headache: 0-None Present S COWS - Scale Resting Pulse: 0= [place] 80 or Below Sweatin= Chills/Flushing Restless Observation: 1= Difficult to Sit Still Pupil Size: 1= Pupils >than Normal Bone or Joint Aches: 1= Mild Discomfort Runny Nose/ Eye Tearin= Nasal Congestion GI Upset > 30mins: 0= None Tremor Observation of Outstretched Hands: 2= Slight Tremor Visible Yawning Observation: 1= 1-2x During Session Anxiety or Irritability: 1=Feels Anxious/Irritable Goose Flesh Skin: 3=Piloerection COWS Score: 12 [facility] Progress Note (SOAP) Subjective: Patient is being managed for alcohol, benzo and heroin withdrawal. He was also using nicotine,cocaine and cannabis. He says he is feeling very sick and asked for a higher dose of methadone and a continuation of clonidine(Patient is already on highest methadone regimen Objective: 11/03/19 11:12 Patient is being managed for alcohol, benzo and heroin withdrawal with valium and methadone respectively. He was also using nicotine,cocaine and cannabis. He says he is feeling very sick and asked for a higher dose of methadone and a continuation of clonidine(Patient is already on highest methadone regimen. Patient is calm and cooperative. Assessment: 11/03/19 11:14 ALCOHOL, BENZO AND HEROIN WITHDRAWAL on treatment. Continue valium, methadone and other supporting medications as prescribed. Plan: Continue valium, methadone and other supporting meds/treatment as recommended. Due to complete detox 0n 11/04/19
--- NOTE | 2019-11-03 12:02 | PN ---
Psychiatric Progress Note Vital Signs: Vital Signs Period Temp Pulse Resp BP Sys/Yang Pulse Ox Last 24 Hr 97.1 F-97.5 F 71-99 16-20 106-124/69-78 95-100 Date of Session: 11/03/19 Chief Complaint:: " I am not sure about going to rehab and I need more seroquel." HPI: Day 4 of detoxification. Benign hospitalization. No acute issues. Patient wanted to see psychiatrist to discuss plan for rehabilitation and dose increase of seroquel. Mr Tovar had continued to do fine since his admission to [address] [place] [address]. ROS: Unremarkable. Current Medications: Active Medications Generic Name Dose Route Start Last Admin Trade Name Freq PRN Reason Stop Dose Admin Acetaminophen 650 mg 10/31/19 11:10 Tylenol - PO Q6H PRN PAIN LEVEL 4 - 6 Acetaminophen 650 mg 10/31/19 11:10 Tylenol - PO Q6H PRN FEVER Al Hydroxide/Mg Hydroxide 30 ml 10/31/19 11:10 Mylanta Oral Suspension - PO Q6H PRN DYSPEPSIA Diazepam 5 mg 11/05/19 05:00 Valium - PO 11/05/19 05:01 ONCE ONE Diazepam 5 mg 11/04/19 05:00 Valium - PO 11/04/19 17:01 Q12H JENNIFER Diazepam 5 mg 11/03/19 05:00 11/03/19 05:26 Valium - PO 11/03/19 21:01 5 mg Q8H JENNIFER Administration Diazepam 5 mg 11/03/19 00:01 11/03/19 09:04 Valium - PO 11/04/19 23:59 5 mg Q6H PRN Administration WITHDRAWAL(CONT SUBST) Divalproex Sodium 500 mg 11/01/19 22:00 11/02/19 22:10 Depakote - PO 500 mg HS JENNIFER Administration Eucalyptus/Menthol/Phenol/Sorbitol 1 each 10/31/19 11:10 Cepastat Lozenge - MM 11/06/19 11:10 Q4H PRN SORE THROAT Hydroxyzine Pamoate 50 mg 11/02/19 11:00 11/03/19 10:07 Vistaril - PO 11/06/19 11:10 50 mg Q6H JENNIFER Administration Magnesium Citrate 300 ml 10/31/19 11:10 Citroma - PO Q48H PRN CONSTIPATION Magnesium Hydroxide 30 ml 10/31/19 11:10 Milk Of Magnesia - PO PRN PRN CONSTIPATION Melatonin 5 mg 10/31/19 22:00 11/02/19 22:10 Melatonin PO 5 mg HS JENNIFER Administration Methadone HCl 5 mg 11/05/19 06:00 Dolophine - PO 11/05/19 06:01 ONCE@0600 ONE Methadone HCl 10 mg 11/04/19 10:00 Dolophine - PO 11/04/19 10:01 ONCE ONE Methocarbamol 500 mg 10/31/19 11:10 11/03/19 05:40 Robaxin - PO 11/06/19 11:10 500 mg Q6H PRN Administration MUSCLE SPASMS Nicotine 14 mg 10/31/19 11:15 11/03/19 10:08 Nicoderm Patch - TD 14 mg DAILY JENNIFER Administration Nicotine Polacrilex 2 mg 10/31/19 11:10 Nicorette Gum - BUC Q2H PRN NICOTINE REPLACEMENT RX Ondansetron HCl 4 mg 10/31/19 11:10 Zofran Odt - SL 11/06/19 11:11 Q8H PRN Nausea/Vomiting Multivit/Folic Acid/Iron 1 tab 11/01/19 10:00 11/03/19 10:07 Vitamins (Sjr) - PO 1 tab DAILY JENNIFER Administration Quetiapine Fumarate 100 mg 11/01/19 22:00 11/02/19 23:14 Seroquel - PO 100 mg HS JENNIFER Administration Quetiapine Fumarate 200 mg 11/03/19 22:00 Seroquel - PO HS JENNIFER Suvorexant 5 mg 11/02/19 22:00 11/02/19 22:10 Belsomra PO 11/03/19 21:59 5 mg HS JENNIFER Administration Thiamine HCl 100 mg 10/31/19 22:00 11/02/19 23:14 Vitamin B1 - PO 100 mg HS JENNIFER Administration Medication(s) Change(s): Seroquel is increased to 200 mg po hs. Side effects/benefits are evisited with the patient. Mr Tovar is in agreement with this plan of care. Current Side Effect: No Lab tests ordered: No Lab tests reviewed: Yes Provider note:: Chart reviewed. Met with the patient. Mr Tovar remains ambivalent about enlisting in rehabilitation. Encouragement given. Patient is made aware of risk of relapse and benefits of rehabilitation (management of craving, emphasis on spirituality, motivational counseling, supportive/individual therapy, medications). He continues to complain of insomnia and he has requested optimization of seroquel dose. Done (dose now at 200 mg/hs). Patient is observed as neatly groomed, visible on the unit and well-controlled. Medication-seeking : patient is also asking for more methadone. He is redirected by this job specification writer. Mental is otherwise unremmarkable. No delusions or hallucinations. Patient has consistently denied suicidal or homicidal ideation, intent or plan. Mr Tovar is at his baseline. Total face to face time:: 35 Mental Status Exam - Mental Status Exam Alert and Oriented to: Time, Place, Person Cognitive Function: Good Patient Appearance: Well Groomed Mood: Anxious Affect: Appropriate, Normal Range Patient Behavior: Appropriate, Cooperative Speech Pattern: Clear, Appropriate Voice Loudness: Normal Thought Process: Intact, Goal Oriented Thought Disorder: Not Present Hallucinations: Denies Suicidal Ideation: Denies Homicidal Ideation: Denies Insight/Judgement: Poor Sleep: Poorly, Difficulty falling asleep Appetite: Good Gait/Station: Normal Psychiatric Treatment Plan - Problem List (1) Opioid dependence with withdrawal Current Visit: Yes Comment: . (2) Alcohol use disorder Current Visit: Yes Comment: . (3) Cannabis dependence Current Visit: Yes Comment: . (4) Nicotine dependence Current Visit: Yes Qualifiers: Nicotine product type: cigarettes Substance use status: uncomplicated Qualified Code(s): F17.210 - Nicotine dependence, cigarettes, uncomplicated Comment: . (5) Substance induced mood disorder Current Visit: Yes Comment: . (6) History of bipolar disorder Current Visit: Yes Comment: . (7) Insomnia Current Visit: Yes Qualifiers: Qualified Code(s): F51.03 - Paradoxical insomnia Comment: .
[2019-11-03 17:11] VITALS: BP 129/76; PULSE 80; TEMP 97.7
[2019-11-03] MEDS ORDERED: MASKS NR ONE (17:44)
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
[2019-11-03] MEDS ORDERED: QUEtiapine FUMARATE 200 MG TABLET PO SCH (22:00)
[2019-11-04] MEDS ORDERED: chlordiazePOXIDE HCL 10 MG CAPSULE PO SCH (05:00)
[2019-11-04] MEDS ORDERED: diazePAM 5 MG TABLET PO SCH (05:00)
[2019-11-04] MEDS ORDERED: METHADONE HCL 10 MG TABLET (FOR DETOX USE ONLY) PO ONE (10:00)
[2019-11-05] MEDS ORDERED: diazePAM 5 MG TABLET PO ONE (05:00)
[2019-11-05] MEDS ORDERED: chlordiazePOXIDE HCL 10 MG CAPSULE PO ONE (05:00)
[2019-11-05] MEDS ORDERED: METHADONE HCL 5 MG TABLET (FOR DETOX USE ONLY) PO ONE (06:00)
== END 2019-11-03 17:59 | disposition left against medical advice (07) | DRG 770 ==
LOC: YASAS 09:23 → Y3N 12:41
PROVIDERS: ADMIT Allergy & Immunology; ATTEND Allergy & Immunology
PROC: HZ2ZZZZ Detoxification Services for Substance Abuse Treatment (ICD-10-PCS; principal; 2019-10-31)
DX: F10.230 Alcohol dependence with withdrawal, uncomplicated (principal); F11.23 Opioid dependence with withdrawal; F13.230 Sedative, hypnotic or anxiolytic dependence with withdrawal, uncomplicated; F14.20 Cocaine dependence, uncomplicated; F12.20 Cannabis dependence, uncomplicated; F17.210 Nicotine dependence, cigarettes, uncomplicated; F51.03 Paradoxical insomnia; F31.9 Bipolar disorder, unspecified; F19.24 Other psychoactive substance dependence with psychoactive substance-induced mood disorder; E78.5 Hyperlipidemia, unspecified; I10 Essential (primary) hypertension; M54.5 Low back pain; G89.29 Other chronic pain; Z62.810 Personal history of physical and sexual abuse in childhood; Z91.410 Personal history of adult physical and sexual abuse; Z91.19 Patient's noncompliance with other medical treatment and regimen; Z91.5 Personal history of self-harm; Z88.0 Allergy status to penicillin; Z88.6 Allergy status to analgesic agent; Z56.0 Unemployment, unspecified; Z59.0 Homelessness
CPT/HCPCS: 36415; 80053; 85027; 86780; 87389; 93005; 93010; J0735; U0003